=== PATIENT | male | born 1950 | race Caucasian/White ===

== ENCOUNTER → 2020-09-24 02:21 | Outpatient (CLI) | payer MEDICARE, BC, SELFPAY ==
[2020-09-25 14:53] LABS: SARS-CoV-2 RNA PCR Negative
== END ==
PROVIDERS: PCP Family Medicine; Visit Provider Internal Medicine Gastroenterology
DX: Z01.812 Encounter for preprocedural laboratory examination (principal); Z20.822 Contact with and (suspected) exposure to COVID-19
CPT/HCPCS: C9803; U0003; U0005

== ENCOUNTER 2020-09-28 00:56 | Day surgery (SDC) | payer MEDICARE, BC, SELFPAY ==
[2020-09-23 16:13] VITALS: BMI 23.3
[2020-09-28 09:10] VITALS: BP 146/74; PULSE 77; RESP 18; TEMP 36.2; O2SAT 99; BMI 22.0
[2020-09-28] MEDS: LACTATED RINGERS 1,000 ML 150 ML IV CONT (09:21)
--- NOTE | 2020-09-28 09:40 | WPDANESEPPF ---
Anes - Initial Pre Proc Eval Procedure: Operation Date: 09/28/20 11:15 Proposed Procedures p Screening Colonoscopy - Milind Parker MD Date/Time: 09/28/20 09:40 Surgeon: Milind Parker MD Pre Op Diagnosis: hx colon polyps, family hx colon Patient Data Age: 70 Gender: M Height: 1.65 m Weight: 60.1 kg Last Vital Signs Temp 36.2 C L 09/28/20 09:10 Pulse 77 09/28/20 09:10 Resp 18 09/28/20 09:10 BP 146/74 H 09/28/20 09:10 Pulse Ox 99 09/28/20 09:10 Allergies Allergy/AdvReac Type Severity Reaction Status Date / Time No Known Allergies Allergy Verified 09/23/20 16:12 Home Medications Medication Instructions Recorded Confirmed Type aspirin 81 mg tablet,delayed 81 mg PO DAILY 06/03/20 09/23/20 History release multivitamin 1 tablet PO DAILY 06/03/20 09/23/20 History sildenafil 100 mg tablet 100 mg PO DAILY PRN 06/03/20 09/23/20 History zolpidem 5 mg tablet 5 mg PO .at night #90 tablet 06/03/20 09/23/20 Rx atorvastatin 40 mg tablet 40 mg PO DAILY #90 tablet 08/05/20 09/23/20 Rx lisinopril 20 mg tablet 20 mg PO DAILY #90 tablet 08/05/20 09/23/20 Rx Patient hx anesthesia problems: none Family hx anesthesia problems: none PMFSH Past Medical History Medical History Club foot Colonoscopy refused Elevated blood sugar Hernia HLD (hyperlipidemia) Hypertension Insomnia Surgical History Surgical History H/O foot surgery S/P hernia surgery Family History Family History Father Carcinoma of colon Mother Ovarian cancer Social History Social History Smoking packs per day: 1 Smoking cigarettes per day: 20.0 Years smoked: 25 Smoking pack-years: 25.00 Smoking status: Never smoker Tobacco type: cigarettes Second hand tobacco smoke exposure: Yes Smoking end date: 05/20/79 Alcohol intake: never Substance use: never Substance use type: does not use Living arrangements: with family Gender identity (if verbalized by the patient): Male Spiritual care concerns: No Anes - Eval Final PreProcedure Day of Procedure 09/28/20 09:40 Patient weight: normal Heart: regular rate and rhythm Lungs: clear to auscultation and normal air movement Airway: Mallampati scale class II Neurological: alert and oriented Last oral intake: >/= 8 hours ASA classification: II Emergent: no Anesthetic plan: proceed Anesthesia type and monitoring: general GIVS and standard monitoring Informed Consent: The patient's anesthetic plan and its attendant risks and benefits were discussed with the patient/family/POA. Questions were solicited and answers provided to the satisfaction of the patient/family/POA.
--- NOTE | 2020-09-28 09:49 | WPDGICN ---
Assessment and Plan Assessment and plan (1) History of colon polyps: Code(s): Z86.010 - Personal history of colonic polyps Status: Acute Assessment and Plan: Patient presents for colonoscopy today. He has had colon polyps in the past. Recently had rectal bleeding attributed to hemorrhoids. Plan is for high-fiber diet colonoscopy is been is suggested every 5 years. (2) Family history of colon cancer in father: Code(s): Z80.0 - Family history of malignant neoplasm of digestive organs Status: Acute Assessment and Plan: Patient has family history of colon cancer in father. Sister has had colon polyps he himself has had colon polyps as well. Surveillance colonoscopy at 5 year intervals is suggested. GI Consult Note Consult date/time: 09/28/20 09:49 HPI: Sinan Oreilly Jr. is a 70 year old male Presents for screening colonoscopy. Patient has a history of prior colon polyps. Most recent colonoscopy was 5 years ago. Patient states his current weight appetite bowel movements are normal. He denies abdominal pain. He has a small amount of bright red blood on wiping that is attributed to hemorrhoids. He reports a 5-6 lb weight loss over the last month or 2. He denies any abdominal pain. Family history significant that his father had colon cancer in his sister had colon polyps. Review of Systems Review of Systems: All systems reviewed & are unremarkable except as noted in HPI and below PMFSH Past Medical History Medical History Club foot Colonoscopy refused Elevated blood sugar Hernia HLD (hyperlipidemia) Hypertension Insomnia Surgical History Surgical History H/O foot surgery S/P hernia surgery Family History Family History Father Carcinoma of colon Mother Ovarian cancer Social History Social History Smoking packs per day: 1 Smoking cigarettes per day: 20.0 Years smoked: 25 Smoking pack-years: 25.00 Smoking status: Never smoker Tobacco type: cigarettes Second hand tobacco smoke exposure: Yes Smoking end date: 05/20/79 Alcohol intake: never Substance use: never Substance use type: does not use Living arrangements: with family Gender identity (if verbalized by the patient): Male Spiritual care concerns: No Meds Home Medications and Allergies Home Medications Medication Instructions Recorded Confirmed Type aspirin 81 mg tablet,delayed 81 mg PO DAILY 06/03/20 09/23/20 History release multivitamin 1 tablet PO DAILY 06/03/20 09/23/20 History sildenafil 100 mg tablet 100 mg PO DAILY PRN 06/03/20 09/23/20 History zolpidem 5 mg tablet 5 mg PO .at night #90 tablet 06/03/20 09/23/20 Rx atorvastatin 40 mg tablet 40 mg PO DAILY #90 tablet 08/05/20 09/23/20 Rx lisinopril 20 mg tablet 20 mg PO DAILY #90 tablet 08/05/20 09/23/20 Rx Allergies Allergy/AdvReac Type Severity Reaction Status Date / Time No Known Allergies Allergy Verified 09/23/20 16:12 Vital Signs Vital Signs - 24 hr 09/28/20 09:10 Temperature 97.1 F L Pulse Rate 77 Respiratory Rate 18 Blood Pressure 146/74 H Pulse Oximetry 99 Exam Narrative: Exam Narrative: Physical exam reveals patient be alert. Vital signs stable. HEENT exam is unremarkable. Patient is anicteric. Lungs are clear to auscultation and percussion. Heart is without murmur or extra sounds. Abdominal exam bowel sounds are present soft nontender with no organomegaly. Digital external rectal exam is normal.
[2020-09-28 10:46] VITALS: BP 112/62; PULSE 61; RESP 18; O2SAT 97
[2020-09-28 10:56] VITALS: BP 112/62; PULSE 66; RESP 24; O2SAT 100
[2020-09-28 11:06] VITALS: BP 113/62; PULSE 58; RESP 20; O2SAT 96
== END 2020-09-28 11:12 | disposition home or self-care (01) ==
PROVIDERS: PCP Family Medicine; Visit Provider Internal Medicine Gastroenterology
PROC: 0DJD8ZZ Inspection of Lower Intestinal Tract, Via Natural or Artificial Opening Endoscopic (ICD-10-PCS; CPT 45378; principal; 2020-09-28 11:15)
DX: Z12.11 Encounter for screening for malignant neoplasm of colon (principal); K63.5 Polyp of colon; K64.8 Other hemorrhoids; K57.30 Diverticulosis of large intestine without perforation or abscess without bleeding; Z80.0 Family history of malignant neoplasm of digestive organs; I10 Essential (primary) hypertension; E78.5 Hyperlipidemia, unspecified; Z79.82 Long term (current) use of aspirin; Z87.891 Personal history of nicotine dependence
CPT/HCPCS: 45385; 88305; J2704; J7120

== ENCOUNTER 2021-05-15 08:31 | Emergency (ER) | payer MEDICARE, BC, SELFPAY ==
[2021-05-15 08:42] VITALS: BP 145/79; PULSE 92; RESP 18; TEMP 36.9; O2SAT 99
--- NOTE | 2021-05-15 08:44 | ED.URI ---
HPI - URI/Sore Throat General Chief Complaint: Upper Respiratory Infection Stated Complaint: Cold Time Seen by Provider: 05/15/21 08:44 Source: patient Mode of arrival: ambulatory Limitations: no limitations History of Present Illness HPI Narrative: +Sinan Oreilly is a 71 yo male with high cholesterol, HTN, difficulty sleeping, who comes to express care with cold symptoms. He has no fever, has congestion and cough. He has had this cough for 4-5 days, Related Data Home Medications Medication Instructions Recorded Confirmed aspirin 81 mg tablet,delayed 81 mg PO DAILY 06/03/20 05/15/21 release multivitamin 1 tablet PO DAILY 06/03/20 05/15/21 Allergies Allergy/AdvReac Type Severity Reaction Status Date / Time No Known Allergies Allergy Verified 05/15/21 08:49 Review of Systems Review of Systems: CONSTITUTIONAL: Denies fever, chills, sweats. EYES: Denies visual changes, redness, discharge. ENT: Denies rhinorrhea, mild congestion, sore throat, otalgia. CARDIOVASCULAR: Denies chest pain, palpitations, edema. RESPIRATORY: Denies dyspnea, wheezing, mild cough GASTROINTESTINAL: Denies abdominal pain, nausea, vomiting, diarrhea. GENITOURINARY: Denies dysuria, hematuria, abnormal discharge SKIN: Denies rash or itching. NEUROLOGIC: Denies numbness, or focal weakness. PSYCHIATRIC: Denies anxiety or depression. [facility] Past Medical History Medical History Club foot Colonoscopy refused Elevated blood sugar Encounter for colonoscopy due to history of adenomatous colonic polyps (~09/2020) Encounter for immunization Hernia HLD (hyperlipidemia) Hypertension Insomnia Surgical History Surgical History H/O foot surgery S/P hernia surgery Family History Family History Father Carcinoma of colon Mother Ovarian cancer Mother Family history of heart disease in male family member before age 55 Other Hypertension Social History Social History Smoking packs per day: 1 Smoking cigarettes per day: 20.0 Years smoked: 15 Smoking pack-years: 15.00 Tobacco type: cigarettes Second hand tobacco smoke exposure: Yes Smoking end date: 05/20/79 Alcohol intake: former Substance use: never Substance use type: does not use Gender identity (if verbalized by the patient): Male Spiritual care concerns: No Comments At time of signature, I agree with nursing past medical, surgical, social and family history. There is no relevant family history pertinent to the presenting complaint. Exam Narrative: GENERAL: This is a well-nourished, well-developed patient, in no distress. HEAD: normocephalic, atraumatic. EYES: Sclera clear/white. Vision is grossly intact. EARS: External ears normal, auditory canals clear and without drainage, TMs normal without perforation. Hearing grossly intact. NOSE: External nose normal without nasal discharge, nares without redness, no rhinorrhea. THROAT: Mucous membranes moist, posterior pharynx mild erythema NECK: Neck supple, non-tender CARDIOVASCULAR: Regular rate and rhythm without murmurs, gallops, or rubs. RESPIRATORY: Clear to auscultation. Breath sounds equal bilaterally. No wheezes, rales, or rhonchi. GASTROINTESTINAL: Abdomen soft, SKIN: warm, intact with no suspicious lesions or rash, good texture and turgor. NEURO: awake, alert, and oriented to person, place and time. There were no obvious focal neurologic abnormalities. Steady gait EXTREMITIES: Normal range of motion. BACK: Nontender without deformity Course Course Emergency Course: Patient comes with cough and sinus drainage x4 to 5 days has taken nothing but if you cough drops has had no fever Started on prednisone 40 mg x 5 days, Tessalon Vital Signs Vital signs: Vital Signs Temperature 98.
== END 2021-05-15 09:05 | disposition home or self-care (01) ==
PROVIDERS: Emergency Provider Nurse Practitioner; PCP Family Medicine
DX: J06.9 Acute upper respiratory infection, unspecified (principal); I10 Essential (primary) hypertension; E78.5 Hyperlipidemia, unspecified; F17.210 Nicotine dependence, cigarettes, uncomplicated; Z79.82 Long term (current) use of aspirin
CPT/HCPCS: 99213; G0463

== ENCOUNTER 2024-03-10 14:41 | Outpatient (CLI) | payer MEDICARE, BC, SELFPAY ==
--- NOTE | ~2024-03-10 | US_ITS ---
EXAM: RENAL ULTRASOUND HISTORY: N18.30 - Chronic kidney disease, stage 3 unspecified COMPARISON: None FINDINGS: RIGHT KIDNEY: 8.6 x 4.9 x 4.5 cm. No hydronephrosis or bulky renal calculi. LEFT KIDNEY: 7.4 x 5.0 x 4.6 cm No hydronephrosis or renal calculi. BLADDER: Unremarkable. IMPRESSION: No hydronephrosis or renal calculi. Reviewed, dictated and finalized at location A.
== END 2024-03-10 14:42 | disposition home or self-care (01) ==
LOC: MICIMG 14:43
PROVIDERS: PCP Family Medicine; Visit Provider Family Medicine
DX: N18.30 Chronic kidney disease, stage 3 unspecified (principal)
CPT/HCPCS: 76775

== ENCOUNTER 2024-05-23 07:42 | Outpatient (CLI) | payer MEDICARE, BC, SELFPAY ==
--- NOTE | ~2024-05-23 | US_ITS ---
EXAMINATION: US thyroid DATE: 05/23/2024 09:50 INDICATION: Nontoxic goiter TECHNIQUE: Multiple ultrasound images of the thyroid were obtained. COMPARISON: 12/04/2017 FINDINGS: The right thyroid lobe measures 4.0 x 1.4 x 1.3 cm. Within the upper pole of the right lobe of the thyroid gland is a 5.1 x 2.0 x 3.5 mm nodule: Composition -cystic Echogenicity -anechoic Shape - wider than tall Margin - smooth Echogenic foci - none. = TR1 benign The left thyroid lobe measures 2.9 x 0.9 x 1.3 cm. Composition -cystic Echogenicity -anechoic Shape - wider than tall Margin - smooth Echogenic foci - none. = TR1 benign The isthmus measures 3mm in anterior to posterior dimension. There is otherwise normal echotexture and echogenicity throughout the remainder of the thyroid gland. No additional discrete nodules identified. Normal vascular flow is present. IMPRESSION: TR1 nodules detected bilaterally. Neither Nodule is sonographically suspicious and no FNA is recommended Follow-up may be performed. Reviewed, dictated and finalized at location A. [facility]
== END 2024-05-23 07:43 | disposition home or self-care (01) ==
PROVIDERS: PCP Family Medicine; Visit Provider Student in an Organized Health Care Education/Training Program
DX: E04.9 Nontoxic goiter, unspecified (principal); E03.9 Hypothyroidism, unspecified
CPT/HCPCS: 76536

== ENCOUNTER 2024-11-23 11:00 | Outpatient (CLI) | payer MEDICARE, BC, SELFPAY ==
--- NOTE | ~2024-11-23 | XR_ITS ---
EXAM: XR elbow LT 2V DATE: 11/23/2024 12:25 HISTORY: M25.522 - Pain in left elbow . COMPARISON: None available. FINDINGS: Normal mineralization. No fracture or dislocation. Circumscribed, 11 mm, lucent, eccentric lesion in the posterior and distal left humerus, with endosteal scalloping. No cortical breakthrough or periosteal change. Joint spaces are maintained. No erosion or periosteal change. Soft tissues wit hin normal limits. IMPRESSION: Lucent distal humeral lesion, concerning for metastatic disease or myeloma. Correlate wit h history of cancer. Recommend comparison to outside studies if available. Consider bone scanning for further evaluation. Reviewed, dictated and finalized at location K. IMPRESSION: Lucent distal humeral lesion, concerning for metastatic disease or myeloma. Correlate with history of cancer. Recommend comparison to outside stud ies if available. Consider bone scanning for further evaluation.
--- OUTSIDE RECORDS SUMMARY | 2024-11-23 11:17 | XMS_ITS | Clinical Summary ---
Author Organization [facility] [place] [address] Address [address] [place] [address] Care Team Providers Care Production Underwriter Name Role Phone Ivania Morrissey MD Primary Care Provider [phone] Allergies No known active allergies Medications lisinopril (PRINIVIL,ZESTRI L) 20 mg tablet Take 1 tablet (20 mg total) by mouth daily 1 9 Active atorvastatin (LIPITOR) 40 mg tablet Take 1 tablet (40 mg total) by mouth daily 1 9 Active aspirin 81 mg enteric coated tablet Take 1 tablet (81 mg total) by mouth daily Active multivitamin tabletIndication s:Vitamin Deficiency Prevention Take 1 tablet by mouth Active sildenafiL (VIAGRA) 100 mg tablet TAKE 1 TABLET BY MOUTH 30 MINUTES PRIOR TO INTERCOURSE 0 Active mirtazapine (REMERON) 15 mg tablet Take 1 tablet (15 mg total) by mouth nightly at bedtime. 2 Active amLODIPine (NORVASC) 5 mg tabletIndication s:Essential hypertension TAKE 1 TABLET (5 MG TOTAL) BY MOUTH DAILY. 90 tablet 1 5 09/08/19 26 Active Active Problems Problem Noted Date Diagnosed Date Lipid screening 01/17/2022 Nonrheumatic mitral valve regurgitation 01/06/20 Pulmonary hypertension 01/13/2020 Non-rheumatic aortic regurgitation 07/10/2019 Chest pain 04/03/2019 Essential hypertension 04/03/2019 Hyperlipidemia LDL goal <130 04/03/2019 CKD (chronic kidney disease) stage 2, GFR 60-89 ml/min 04/03/2019 Encounters Date Type Department Care Team Description 09/29/2024 3:15 PM CDT Office Visit [facility] Cardiology [address] [place] [address] Joaquim Bliss MD Pulmonary hypertension (HCC) (Primary Dx); Nonrheumatic mitral valve regurgitation; Non-rheumatic aortic regurgitation; Hyperlipidemia LDL goal <130; Essential hypertension from Last 3 Months Surgical History Surgery Date Site/Laterality Comments HERNIA REPAIR 15 YEARS AGO Medical History Medical History Date Comments Hypertension Family History Medical History Relation Name Comments Cancer Father DAD Cancer Mother MOM Relation Name Status Comments Brother 1 Alive Brother 2 Alive Father DAD (Age 72) Mother MOM (Age 84) Sister Alive Social History Tobacco Use Types Packs/Day Years Used Date Smoking Tobacco: Former Cigarettes 1 15 1 06/03/1971 - 04/03/1987 Smokeless Tobacco: Never Tobacco Cessation:Counseling Given: Not Answered Comments:quit 40 years ago Alcohol Use Standard Drinks/Week Comments Not Currently 0 (1 standard drink = 0.6 oz pur e alcohol) AUDIT-C Answer Date Recorded Frequency of Alcohol Consumption Never 04/03/2019 Average Number of Drinks Not on file 019 Frequency of Binge Drinking Not on file 03/20 Sex and Gender Information Value Date Recorded Sex Assigned at Not on file 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 Gender Identity Not on file Sexual Orientation Not on file Obstetrics History Last Filed Vital Signs Vital Sign Reading Time Taken Comments Blood Pressure 116/66 09/29/2024 3:23 PM CDT Pulse 64 09/29/2024 3:23 PM CDT Temperature 36.7 C (98 F) 06/22/2020 1:54 PM RECEPTIONIST TELEPHONE OPERATOR Respiratory Rate - - Oxygen Saturation 98% 09/29/2024 3:23 PM CDT Inhaled Oxygen Concentration - - Weight 64 kg (141 lb) 09/29/2024 3:23 PM CDT Height 162.6 cm (5' 4) 09/29/2024 3:23 PM CDT Body Mass Index 24.2 09/29/2024 3:23 PM CDT Plan of Treatment Health Maintenance Due Date Last Done Comments Depression Screening 1948 Fall Risk Assessment 1948 Hepatitis C Screening 1948 DTaP/Tdap/Td Vaccine (1 - Tdap) 1959 Hepatitis B Screening 1966 Zoster Vaccine (1 of 2) 1998 Abdominal Aortic Aneurysm (A AA) Screen 2013 Well Visit 65+ 2013 Covid-19 Vaccine (3 - 2023-2 5 season) 2024 08/02/2020, 07/12/2020 Influenza Vaccine (Season Ended) 2025 02/09/2020, 02/23/2019, 03/17/2018, Additional history exists Pneumococcal vaccine 65+ Completed 03/16/2020, 11/2018 Insurance MEDICARE RAILROAD MEDICARE RAILROAD [facility] Member Subscriber Plan / Payer (Ef fective 2015-Present) Name:Sinan Oreilly Relation to Subscriber:Self Name:Sinan Oreilly Payer ID:[id number] (NAIC) Group ID:[id number] Type:[employer] Address: [facility] [address] [place] [id number] Care Teams Production Underwriter Relationship Specialty Start Date End Date Ivania Morrissey MD PCP - General Family Medicine 06/22/20
--- OUTSIDE RECORDS SUMMARY | 2024-11-23 11:17 | XMS_ITS | Encounter Summary ---
Author Organization [facility] Healthcare Address [address] [place] [address] Care Team Providers Care Telephone Lines Repairer Name Role Phone Ivania Morrissey MD Primary Care Provider [phone] Encounter Details Date Type Department Care Team (Late st Contact Info) Description 07/20/2024 Orders Only [facility] [place] Health Information Management [address] [place] [id number] Scanning, Provider Social History Tobacco Use Types Packs/Day Years Used Date Smoking Tobacco: Former Cigarettes 1 15 1 06/03/1971 - 04/03/1987 Smokeless Tobacco: Never Comments:quit 40 years ago Alcohol Use Standard [...] on file 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 Gender Identity Not on file Sexual Orientation Not on file documented as of this encounter Plan of Treatment Not on file documented as of this encounter Procedures Procedure Name Priority Date/Time Associated Diagnosis Comments SCAN - LABS 07/20/2024 documented in this encounter Results * SCAN - LABS (07/20/2024) us Provider Scanning Final Result documented in this encounter Visit Diagnoses Not on filedocumented in this encounter Care Teams Telephone Lines Repairer Relationship Specialty Start Date End Date Ivania Morrissey MD PCP - General Family Medicine 06/22/20 documented as of this encounter
--- OUTSIDE RECORDS SUMMARY | 2024-11-23 11:17 | XMS_ITS | Referral Summary ---
Author Organization [facility] [place] [address] [facility] [address] [place] [address] Care Team Providers Care Zipper Machine Operator Name Role Phone Ivania Morrissey MD Primary Care Provider [phone] Encounters Date Type Department Care Team Description 09/29/2024 3:15 PM CDT Office Visit [facility] Cardiology [address] [facility] [address] [place] [address] Joaquim Bliss MD Pulmonary hypertension (HCC) (Primary Dx); Nonrheumatic mitral valve regurgitation; Non-rheumatic aortic regurgitation; Hyperlipidemia LDL goal <130; Essential hypertension from Last 3 Months Allergies No known active allergies Medications lisinopril [...] disease) stage 2, GFR 60-89 ml/min 04/03/2019 Social History Tobacco Use Types Packs/Day Years [...] on file 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 Gender Identity Not on file Sexual Orientation Not on file Last Filed Vital Signs Vital Sign Reading Time Taken Comments Blood Pressure 116/66 09/29/2024 3:23 PM CDT Pulse 64 09/29/2024 3:23 PM CDT Temperature 36.7 C (98 F) 06/22/2020 1:54 PM PROGRAMMING INSTRUCTOR Respiratory Rate - - Oxygen Saturation 98% 09/29/2024 3:23 PM CDT Inhaled Oxygen Concentration - - Weight 64 kg (141 lb) 09/29/2024 3:23 PM CDT Height 162.6 cm (5' 4) 09/29/2024 3:23 PM CDT Body Mass Index 24.2 09/29/2024 3:23 PM CDT Plan of Treatment Not on file Insurance [email or web address] [address] MEDICARE RAILROAD [facility] Member Subscriber Plan / Payer (Ef fective 2015-Present) Name:Sinan Oreilly Relation to Subscriber:Self Name:Sinan Oreilly Payer ID:[id number] (NAIC) Group ID:[id number] Type:[facility] Address: [address] [place] [address] Care Teams Zipper Machine Operator Relationship Specialty Start Date End Date Ivania Morrissey MD PCP - General Family Medicine 06/22/20
== END 2024-11-23 11:01 | disposition home or self-care (01) ==
PROVIDERS: PCP Family Medicine; Visit Provider Student in an Organized Health Care Education/Training Program
DX: M25.522 Pain in left elbow (principal)
CPT/HCPCS: 73070

== ENCOUNTER 2024-11-25 09:24 | Outpatient (CLI) | payer MEDICARE, BC, SELFPAY ==
--- OUTSIDE RECORDS SUMMARY | 2024-11-25 09:35 | XMS_ITS | Clinical Summary ---
Author Organization 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 RELAY TESTER Gender Identity Not on file Sexual Orientation Not on file Obstetrics History Last Filed Vital Signs Vital Sign Reading Time Taken Comments Blood Pressure 116/66 09/29/2024 3:23 PM CDT Pulse 64 09/29/2024 3:23 PM CDT Temperature 36.7 C (98 F) 06/22/2020 1:54 PM RELAY TESTER Respiratory Rate - - Oxygen Saturation 98% [...] 03/16/2020, 11/2018 Insurance MEDICARE RAILROAD MEDICARE RAILROAD [facility] Member Subscriber Plan / Payer (Ef fective 2015-Present) Name:Sinan Oreilly Relation to Subscriber:Self Name:Sinan Oreilly Payer ID:[id number] (NAIC) Group ID:[id number] Type:[employer] Address: [facility] [id number] [place] [id number] Care Teams Body And Fender Mechanic Apprentice Relationship Specialty Start Date End Date Ivania Morrissey MD PCP - General Family Medicine 06/22/20
--- OUTSIDE RECORDS SUMMARY | 2024-11-25 09:35 | XMS_ITS | Encounter Summary ---
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
--- OUTSIDE RECORDS SUMMARY | 2024-11-25 09:35 | XMS_ITS | Referral Summary ---
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 Gender Identity Not on file Sexual Orientation Not on file Last Filed Vital Signs Vital Sign Reading Time Taken Comments Blood Pressure 116/66 09/29/2024 3:23 PM CDT Pulse 64 09/29/2024 3:23 PM CDT Temperature 36.7 C (98 F) 06/22/2020 1:54 PM BLENDER CONVEYOR OPERATOR Respiratory Rate - - Oxygen Saturation 98% 09/29/2024 3:23 PM CDT Inhaled Oxygen Concentration - - Weight 64 kg (141 lb) 09/29/2024 3:23 PM CDT Height 162.6 cm (5' 4) 09/29/2024 3:23 PM CDT Body Mass Index 24.2 09/29/2024 3:23 PM CDT Plan of Treatment Not on file Insurance [place] [address] MEDICARE RAILROAD [facility] Member Subscriber Plan / Payer (Ef fective 2015-Present) Name:Sinan Oreilly Relation to Subscriber:Self Name:Sinan Oreilly Payer ID:[id number] (NAIC) Group ID:[id number] Type:[facility] Address: [address] [place] [address] Care Teams Automotive Parts Advisor Relationship Specialty Start Date End Date Ivania Morrissey MD PCP - General Family Medicine 06/22/20
[2024-11-25 10:01] LABS: Hematocrit 37.4 % (42.0-52.0); Hemoglobin 12.4 g/dL (14.0-18.0); Immature Granulocyte Percent A 0.4 % (0-0.5); Lymphocytes Absolute Auto 1.88 K/mm3 (0.9-3.2); Mean Corpuscular HGB Conc 33.2 g/dl (32-36); Mean Corpuscular Hemoglobin 32.5 pg (26-34); Mean Corpuscular Volume 97.9 fl (80-100); Nucleated Red Blood Cells Absolute Auto 0.000 K/mm3 (0.0-0.012); Nucleated Red Blood Cells Perc 0.0 % (0.0-0.2); Platelet Count Result 296 k/mm3 (150-375); Red Blood Count 3.82 M/mm3 (4.6-6.20); White Blood Count 7.1 K/mm3 (4.5-10.0)
[2024-11-25 10:18] LABS: Anion Gap 9 mmol/L (4-12); Blood Urea Nitrogen 19 mg/dL (9-20); Calcium 9.2 mg/dL (8.4-10.2); Carbon Dioxide 23 mmol/L (22-30); Chloride 106 mmol/L (98-107); Estimated Glomerular Filt Rate 39; Glucose 116 mg/dL (65-110); Potassium 4.1 mmol/L (3.4-5.0); Sodium 138 mmol/L (137-145)
[2024-11-25 10:58] LABS: Add Urine Microscopic? YES; Appearance Urine Clear (Clear); Glucose Urine UA Negative (Negative); Leukocyte Esterase Ur Negative LEU/UL (Negative); Nitrate Urine Negative (Negative); Non Pathogenic Casts 0-2; Specific Grav Ur 1.017 (1.001-1.035)
[2024-11-26 14:08] LABS: Albumin 3.7 g/dL (2.9-4.4); Alpha-1-Globulin 0.2 g/dL (0.0-0.4); Alpha-2-Globulin 0.7 g/dL (0.4-1.0); Gamma Globulin 0.7 g/dL (0.4-1.8)
== END 2024-11-25 09:25 | disposition home or self-care (01) ==
PROVIDERS: PCP Family Medicine; Visit Provider Student in an Organized Health Care Education/Training Program
DX: N18.30 Chronic kidney disease, stage 3 unspecified (principal); R53.83 Other fatigue; M89.8X9 Other specified disorders of bone, unspecified site
CPT/HCPCS: 36415; 80048; 81001; 84165; 85025

== ENCOUNTER 2024-12-02 09:18 | Outpatient (CLI) | payer MEDICARE, BC, SELFPAY ==
--- NOTE | ~2024-12-02 | NM_ITS ---
NM bone scan whole body INDICATION: Abnormal lytic lesion of the left humerus on recent examination. TECHNIQUE: The patient was injected with 25.2 mCi Tc 99m HDP. Gamma camera images of the region of i nterest and whole body were obtained. COMPARISON: Left elbow dated 11/23/2024 FINDINGS: There is a focus of abnormal radiotracer uptake in the left sixth rib posteriorly in the ri ght femur just below the intertrochanteric line. No corresponding radiotracer uptake in the area of a bnormality seen on recent x-ray. There is mild bilateral symmetric polyarticular uptake in the spine, shoulders, elbows, knees, ankles and right wrist, consistent with degenerative joint disease. IMPRESSION: 1: Multifocal areas of mild radiotracer uptake including the left sixth rib and right femur proximal ly, suspicious for metastatic disease. Correlate for history of malignancy. No corresponding tracer u ptake identified in the left humerus in the area of abnormality seen on recent x-ray. Reviewed, dictated and finalized at location B. IMPRESSION: 1: Multifocal areas of mild radiotracer uptake including the left sixth rib an d right femur proximally, suspicious for metastatic disease. Correlate for hist ory of malignancy. No corresponding tracer uptake identified in the left humeru s in the area of abnormality seen on recent x-ray.
--- OUTSIDE RECORDS SUMMARY | 2024-12-02 09:23 | XMS_ITS | Clinical Summary ---
Author Organization [facility] [place] [address] Address [address] [place] [address] Care Team Providers Care Spot Checker Name Role Phone Ivania Morrissey MD Primary Care Provider Allergies No known active allergies Medications lisinopril [...] Description 09/29/2024 3:15 PM CDT Office Visit 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 Member Subscriber Plan / Payer (Ef fective 2015-Present) Name:Sinan Oreilly Relation to Subscriber:Self Name:Sinan Oreilly Payer ID:[id number] (NAIC) Group ID:[id number] Type:[employer] Address: [facility] [id number] [id number] Care Teams Spot Checker Relationship Specialty Start Date End Date Ivania Morrissey MD PCP - General Family Medicine 06/22/20
--- OUTSIDE RECORDS SUMMARY | 2024-12-02 09:23 | XMS_ITS | Encounter Summary ---
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
--- OUTSIDE RECORDS SUMMARY | 2024-12-02 09:23 | XMS_ITS | Referral Summary ---
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 Gender Identity Not on file Sexual Orientation Not on file Last Filed Vital Signs Vital Sign Reading Time Taken Comments Blood Pressure 116/66 09/29/2024 3:23 PM CDT Pulse 64 09/29/2024 3:23 PM CDT Temperature 36.7 C (98 F) 06/22/2020 1:54 PM MASONRY SUPERVISOR Respiratory Rate - - Oxygen Saturation 98% 09/29/2024 3:23 PM CDT Inhaled Oxygen Concentration - - Weight 64 kg (141 lb) 09/29/2024 3:23 PM CDT Height 162.6 cm (5' 4) 09/29/2024 3:23 PM CDT Body Mass Index 24.2 09/29/2024 3:23 PM CDT Plan of Treatment Not on file [place] [address] MEDICARE RAILROAD [facility] Member Subscriber Plan / Payer (Ef fective 2015-Present) Name:Sinan Oreilly Relation to Subscriber:Self Name:Sinan Oreilly Payer ID:[id number] (NAIC) Group ID:[id number] Type:[facility] Address: [address] [place] [address] Care Teams Blockmason Relationship Specialty Start Date End Date Ivania Morrissey MD PCP - General Family Medicine 06/22/20
== END 2024-12-02 09:19 | disposition home or self-care (01) ==
PROVIDERS: PCP Family Medicine; Visit Provider Student in an Organized Health Care Education/Training Program
DX: M89.8X8 Other specified disorders of bone, other site (principal)
CPT/HCPCS: 78306; A9503

== ENCOUNTER 2024-12-29 10:29 | Outpatient (CLI) | payer MEDICARE, BC, SELFPAY ==
--- NOTE | ~2024-12-29 | PE_ITS ---
EXAMINATION: PET skull to mid thigh DATE: 12/29/2024 13:03 INDICATION: Malignant melanoma of the right ear TECHNIQUE: Blood glucose level was 88 mg/dL. 10.301 mCi of 18-fluorodeoxyglucose (18-FDG) was adminis tered i.v. Low dose computed tomography (CT) images were acquired from the base of the brain to the p roximal thighs for attenuation correction and anatomic localization. Positron emission tomography (PE T) images were acquired in the same distribution beginning 54 minutes after injection. Images includi ng fused PET/CT images were reconstructed in axial, coronal, and sagittal planes. Automated exposure control technique was employed. The dose-length product was 771.18mGy-cm. COMPARISON: None FINDINGS: Head/neck: There is symmetric increased activity in the oral cavity, palatine tonsils, laryngeal muscles and ocu lar muscles without CT correlate, likely physiologic. No pathologically enlarged cervical lymphadenop athy or suspicious foci of increased FDG uptake in the visualized head or neck. Chest: Calcified nodule at the right upper lobe consistent with old granulomatous disease. Respiratory motio n and mild dependent atelectasis in the visualized mid to lower lungs. No suspicious pulmonary nodule s or pleural effusion. Heart size is normal. Atherosclerotic coronary artery calcific location. No pe ricardial effusion. Thoracic aorta is normal in caliber. No pathologically enlarged or FDG avid thora cic lymphadenopathy. Abdomen/pelvis/proximal thighs: Physiologic renal accumulation and excretion of FDG activity in the kidneys, bladder and along portio ns of ureters. Normal degree and heterogenous pattern of increased uptake throughout the liver withou t radiologic correlate or dominant FDG avid lesion. The gallbladder, pancreas, spleen and bilateral a drenal glands are normal. Mild uptake scattered throughout the bowels without radiologic correlate, a lso likely physiologic. Normal appendix. There is moderate colonic diverticulosis with a sigmoid pred ominance and without adjacent inflammatory change to suggest diverticulitis. Prostatomegaly measuring 5.2 x 4.9 cm. There is prominent asymmetric increased uptake extending along the bilateral inguinal canals are suggestive postoperative changes consistent with reported history of hernia repairs. No ot her abnormal foci of increased FDG uptake or pathologically enlarged lymphadenopathy in the abdomen, pelvis or proximal thighs. Musculoskeletal: There is focal mild increased uptake with maximal SUV of 2.8 associated with a nonspecific sclerotic lesion in the subtrochanteric proximal right femur. No other suspicious lytic or blastic bone lesions . The second. The uptake described on prior bone scan appears to correspond to the normal uptake at t he caudal tip of the left scapula. IMPRESSION: 1. Mild increased FDG uptake associated with a nonspecific likely benign small sclerotic lesion at th e subtrochanteric right femur which is been present since radiographs dated 05/22/2011 and MRI dated . No other cystic bone lesions or other lesions suspicious for metastatic disease. Reviewed, dictated and finalized at location A. IMPRESSION: 1. Mild increased FDG uptake associated with a nonspecific likely benign small sclerotic lesion at the subtrochanteric right femur which is been present since radiographs dated 05/22/2011 and MRI dated 06/01/2011. No other cystic bone lesio ns or other lesions suspicious for metastatic disease.
--- OUTSIDE RECORDS SUMMARY | 2024-12-29 11:19 | XMS_ITS | Clinical Summary ---
Author Organization [facility] Address [address] [place] [address] Care Team Providers Care Security Sales Manager Name Role Phone Unavailable Primary Care Provider Unavailabl e Allergies No known active allergies Medications atorvastatin (LIPITOR) 40 mg tablet Take 1 Tablet by mouth daily. 12/09/2024 Active lisinopriL (PRINIVIL) 20 mg tablet Take 1 Tablet by mouth daily. 11/19/2024 Active amLODIPine (NORVASC) 5 mg tablet Take 5 mg by mouth daily. 12/10/2024 Active levothyroxine 25 mcg tablet Take 1 Tablet by mouth daily. 11/20/2024 Active multivitamin (DAILY-LIAM) tablet Take 1 Tablet by mouth daily. Active aspirin (ECOTRIN EC) 81 mg Tablet, Delayed Release (E.C.) Take 81 mg by mouth daily. 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) from Last 3 Months Family History Medical History Relation Name Comments Cancer - Other Brother 1 No Known Problems Brother 2 Colon Cancer Father Ovarian Cancer Mother No Known Problems Sister 1 No Known Problems Sister 2 Relation Name Status Comments Brother 1 Alive Brother 2 Alive Father Mother Sister 1 Alive Sister 2 Alive Social History Tobacco Use Types Packs/Day Years Used Date Smoking Tobacco: Never Smokeless Tobacco: Never Alcohol Use Standard Drinks/Week Comments Never 0 (1 standard drink = 0.6 oz pur e alcohol) Sex and Gender Information Value Date Recorded Sex Assigned at Not on file Legal Sex Male 12:23 PM CDT Gender Identity Not on file Sexual Orientation Not on file Last Filed Vital Signs Vital Sign Reading Time Taken Comments Blood Pressure 139/77 12/15/2024 9:12 AM CDT Pulse 69 12/15/2024 9:12 AM CDT Temperature 37 C (98.6 F) 12/15/2024 9:12 AM CDT Respiratory Rate 16 12/15/2024 9:12 AM CDT Oxygen Saturation 97% 12/15/2024 9:12 AM CDT Inhaled Oxygen Concentration - - Weight 64 kg (141 lb) 12/15/2024 9:12 AM CDT Height 162.6 cm (5' 4) 12/15/2024 9:12 AM CDT Body Mass Index 24.2 12/15/2024 9:12 AM CDT Plan of Treatment Upcoming Encounters Date Type Department Care Team (Late st Contact Info) Description 01/05/2025 4:30 PM CDT Telephone Check Up [facility] Oncology and Hematology [place] [address] [place] [address] [facility] [address] [place] [address] Dae Caballero MD [address] [facility] [facility] [address] [place] [address] Health Maintenance Due Date Last Done Comments DTAP/TDAP/TD VACCINES (1 - Tdap) 1967 PNEUMOCOCCAL VACCINE 50+ YEARS (1 of 1 - PCV) 03/09/19 98 ZOSTER VACCINE (1 of 2) 1998 RSV VACCINE (60+ or ) (1 - 1-dose 75+ series) 2023 INFLUENZA VACCINE (#1) 2024 Insurance [facility] [employer] Member Subscriber Plan / Payer (Ef fective 2024-Present) Name:Sinan Oreilly Jr. Relation to Subscriber:Self Name:Sinan Oreilly Jr. Payer ID:[id number] (NAIC) Group ID:[id number] Type:O MEDICARE RAILROAD
--- OUTSIDE RECORDS SUMMARY | 2024-12-29 11:19 | XMS_ITS | Clinical Summary ---
Author Organization [facility] [address] Address [address] [place] [address] Care Team Providers Care Aircraft Log Clerk Name Role Phone Ivania Morrissey MD Primary Care Provider [phone] Allergies No known active allergies Medications lisinopril (PRINIVIL,ZESTR [place]) 20 mg tablet Take 1 tablet (20 mg total) by mouth daily 1 01/30/20 19 Active atorvastatin (LIPITOR) 40 mg tablet Take 1 tablet (40 mg total) by mouth daily 1 01/30/20 19 Active aspirin 81 mg enteric coated tablet Take 1 tablet (81 mg total) by mouth daily Active multivitamin tabletIndicatio ns:Vitamin Deficiency Prevention Take 1 tablet by mouth Active sildenafiL (VIAGRA) 100 mg tablet TAKE 1 TABLET BY MOUTH 30 MINUTES PRIOR TO INTERCOURSE 05/16/20 20 Active mirtazapine (REMERON) 15 mg tablet Take 1 tablet (15 mg total) by mouth nightly at bedtime. 05/31/19 22 Active amLODIPine (NORVASC) 5 mg tabletIndicatio ns:Essential hypertension TAKE 1 TABLET (5 MG TOTAL) BY MOUTH DAILY. 90 tablet 1 12/11/19 25 026 Active amLODIPine (NORVASC) 5 mg tabletIndicatio ns:Essential hypertension TAKE 1 TABLET (5 MG TOTAL) BY MOUTH DAILY. 90 tablet 1 09/08/19 25 025 Discontinued Active Problems Problem Noted Date Diagnosed Date Lipid screening 01/17/2022 Nonrheumatic mitral valve regurgitation 01/06/20 21 Pulmonary hypertension 01/13/2020 Non-rheumatic aortic regurgitation 07/10/2019 Chest pain 04/03/2019 Essential hypertension 04/03/2019 Hyperlipidemia LDL goal <130 04/03/2019 CKD (chronic kidney disease) stage 2, GFR 60-89 ml/min 04/03/2019 Encounters Date Type Department Care Team Description 09/29/2024 3:15 PM CDT Office Visit [facility] Medical Group Cardiology [address] [place] [address] Joaquim Bliss MD Pulmonary hypertension [...] on file 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 Gender Identity Not on file Sexual Orientation Not on file Obstetrics History Last Filed Vital Signs Vital Sign Reading Time Taken Comments Blood Pressure 116/66 09/29/2024 3:23 PM CDT Pulse 64 09/29/2024 3:23 PM CDT Temperature 36.7 C (98 F) 06/22/2020 1:54 PM LABORATORY ENGINEER Respiratory Rate - - Oxygen Saturation 98% [...] 5 season) 2024 08/02/2020, 07/12/2020 Influenza Vaccine (#1) 2025 , 02/23/2019, 03/17/2018, Additional history exists Pneumococcal vaccine 65+ Completed 03/16/2020, 11/2018 Insurance MEDICARE [employer] MEDICARE [facility] [facility] Member Subscriber Plan / Payer (Ef fective 2015-Present) Name:OreillySinan Relation to Subscriber:Self Name:Sinan OreillyAna Payer ID:[id number] (NAIC) Group ID:[id number] Type:[facility] Address: [address] [place] [address] Care Teams Aircraft Log Clerk Relationship Specialty Start Date End Date Ivania Morrissey MD PCP - General Family Medicine 06/22/20
--- OUTSIDE RECORDS SUMMARY | 2024-12-29 11:19 | XMS_ITS | Encounter Summary ---
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
== END 2024-12-29 10:30 | disposition home or self-care (01) ==
PROVIDERS: PCP Family Medicine; Visit Provider Internal Medicine Hematology & Oncology
DX: C43.21 Malignant melanoma of right ear and external auricular canal (principal)
CPT/HCPCS: 78815; A9552